=== PATIENT | male | born 1990 | race African-American/Black ===

== ENCOUNTER 2018-10-07 01:00 | Emergency (ER) | payer OTHER ==
[~2018-10-07] VITALS: Ht 170.2 cm; Wt 104.3 kg
[~2018-10-07 01:00] MED LIST: IBUPROFEN600 MG ORAL; NORCO 5-325 TA1 EAC1 ORAL
--- NOTE | 2018-10-07 01:34 | Emergency Room Report ---
History of Present Illness General Chief Complaint: Lower Extremity Injury Source: Patient Present Illness HPI Patient presents with complaints of pain to the right foot Reports that he was playing with a family member when he landed on his base of his large toe [place] pain across the mid part of the foot Pain has been ongoing since then approximately 6 PM Denies any ankle pain denies any knee pain Denies any back or flank pain denies any lapse of consciousness pain is worse with bearing weight Allergies: Coded Allergies: No Known Allergies (Unverified , 10/07/18) Patient History Past Medical History: see triage record Pertinent Family History: none Reviewed Nursing Documentation: PMH: Agreed; PSxH: Agreed Nursing Documentation-PMH Past Medical History: No Stated History Review of Systems All Other Systems: negative except mentioned in HPI Physical Exam Vital Signs Date Time Temp Pulse Resp B/P (MAP) Pulse Ox O2 Delivery O2 Flow Rate FiO2 10/07/18 01:09 98.4 99 18 165/94 96 Room Air Sp02 EP Interpretation: reviewed, normal General Appearance: well appearing, no apparent distress Head: normocephalic, atraumatic Eyes: bilateral eye PERRL, bilateral eye EOMI ENT: hearing grossly normal, normal pharynx Neck: supple Respiratory: lungs clear Cardiovascular #1: regular rate, rhythm Musculoskeletal: swelling - 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 on palpation of the base of the foot distally mainly on the first metacarpal Neurologic: alert, oriented x3 Skin: normal color, no rash Lymphatic: no adenopathy Procedures Splinting Progress Postop shoe applied does decrease pressure and immobilize the foot well patient provided with crutches remains neurovascularly intact after, Medical Decision Making Diagnostic Impression: Primary Impression: Injury of lower extremity Additional Impression: Foot sprain ER Course No obvious acute fractures are seen on the imaging Patient will have x-rays reviewed by radiology in the morning and was discussed regarding callback if any changes Patient remains neurovascularly intact at this time is stable for close outpatient follow-up Other X-Ray Diagnostic Results Other X-Ray Diagnostic Results : X-Ray ordered: Right foot # of Views/Limited Vs Complete: 3 View Indication: Pain EP Interpretation: Yes Interpretation: no dislocation, no soft tissue swelling, no fractures Impression: No acute disease Electronically Signed by: Josef Dash DO Last Vital Signs Date Time Temp Pulse Resp B/P (MAP) Pulse Ox O2 Delivery O2 Flow Rate FiO2 10/07/18 01:09 98.4 99 18 165/94 96 Room Air Status: improved Disposition: HOME, SELF-CARE Condition: Improved Scripts Ibuprofen* (MOTRIN*) 600 Mg Tablet 600 MG ORAL Q8H PRN for For Pain, #20 TAB 0 Refills Prov: Josef Dash DO 10/07/18 Additional Instructions: Patient is provided with the discharge instructions notified to follow up with primary doctor in the next 2-3 days otherwise return to the er with any worsening symptoms. Please note that this report is being documented using [employer] technology. This can lead to erroneous entry secondary to incorrect interpretation by the dictating instrument. Josef Dash DO Oct 07, 2018 01:34
[2018-10-07] MEDS ORDERED: IBUPROFEN600 MG ORAL (03:13)
[2018-10-07 03:45] VITALS: BP 151/88
--- NOTE | 2018-10-07 11:49 | Diagnostic Imaging Report ---
Indication: Trauma, pain Technique: 3 views right foot Comparison: none Findings: There are slight cortical irregularity of the first is noted on the lateral view, doubtful significance. Very questionable small gas bubbles seen within the first distal phalangeal soft tissues noted. No other evidence of acute fracture or dislocation. Distal phalanx Impression: Possible first distal phalangeal soft tissue trauma. Correlate with clinical findings Doubt acute bony trauma; cannot completely exclude nondisplaced fracture of the first distal phalanx. Correlate with clinical findings This agrees with the preliminary interpretation provided by the emergency room physician
== END 2018-10-07 03:45 | disposition home or self-care (01) ==
LOC: EMR 03:11
DX: S93.601A Unspecified sprain of right foot, initial encounter (principal); W50.0XXA Accidental hit or strike by another person, initial encounter; Y92.9 Unspecified place or not applicable
CPT/HCPCS: 99283

== ENCOUNTER 2019-06-14 01:36 | Emergency (ER) | payer MEDICAID, OTHER ==
[~2019-06-14] VITALS: Ht 170.2 cm; Wt 104.3 kg
--- NOTE | 2019-06-14 02:06 | NUR ---
ED Nurse Note: Patient presents with complaints of elmer, itching x 2 days, Happened yesterday and he took benadryl, happened again today.
[2019-06-14 02:08] VITALS: BP 134/79
[2019-06-14] MEDS ORDERED: PREDNISONE20 MG ORAL ×4 (02:29→02:34)
[2019-06-14] MEDS ORDERED: BENADRYL25 MG ORAL ×4 (02:29→02:34)
[2019-06-14] MEDS ORDERED: DiphenhydrAMINE 25mg/10ml Elixir ORAL ONE (02:45)
[2019-06-14 02:47] VITALS: BP 134/79
--- NOTE | 2019-06-14 02:47 | NUR ---
ED Nurse Note: Patient cleared for discharge, verbalized understanding of discharge instructions. Patient ID band removed. Patient departed with all belongings.
--- NOTE | 2019-06-16 21:49 | Emergency Room Report ---
History of Present Illness General Chief Complaint: Skin Rash/Abscess Source: Patient Present Illness Allergies: Coded Allergies: No Known Allergies (Unverified , 10/07/18) Nursing Documentation-H Past Medical History: No History, Except For Hx Asthma: Yes - juvenile Physical Exam Vital Signs Date Time Temp Pulse Resp B/P (MAP) Pulse Ox O2 Delivery O2 Flow Rate FiO2 06/14/19 01:45 98.2 107 16 134/79 (97) 95 Room Air Medical Decision Making Diagnostic Impression: Primary Impression: Urticaria Last Vital Signs Date Time Temp Pulse Resp B/P (MAP) Pulse Ox O2 Delivery O2 Flow Rate FiO2 06/14/19 02:47 98.2 78 16 134/79 95 Room Air Status: improved Disposition: HOME, SELF-CARE Condition: Stable Scripts Prednisone* (PREDNISONE*) 20 Mg Tablet 40 MG ORAL DAILY, #10 TAB Prov: Rico Rasmussen MD 06/14/19 Diphenhydramine Hcl* (BENADRYL*) 25 Mg Capsule 25 MG ORAL Q6H PRN for Itching, #30 CAP Prov: Rico Rasmussen MD 06/14/19 Referrals: [facility],REFERRING (PCP) Patient Instructions: Benito Bloc-to-Eyef Rico Rasmussen MD Jun 16, 2019 21:49
== END 2019-06-14 02:47 | disposition home or self-care (01) ==
LOC: EMR 02:35
DX: L50.9 Urticaria, unspecified (principal)
CPT/HCPCS: 99282; J7512

== ENCOUNTER 2019-06-16 10:11 | Emergency (ER) | payer OTHER ==
[~2019-06-16] VITALS: Ht 170.2 cm; Wt 104.3 kg
[~2019-06-16 10:11] MED LIST changes: +BENADRYL25 MG ORAL; +PREDNISONE20 MG ORAL
[2019-06-16 10:14] VITALS: BP 136/74
--- NOTE | 2019-06-16 10:23 | NUR ---
ED Nurse Note: Pt from home came in due to consistent hives and itchiness all over his body. Pt was seen here at [facility] 2 days ago for the same symptoms and was prescribed with prednisone and benadryl. No SOB. AAO x4, ambulatory.
--- NOTE | 2019-06-16 10:26 | NUR ---
ED Nurse Note: ERMD at bedside.
[2019-06-16] MEDS ORDERED: MEDROL DOSEPAK4 MG ORAL (10:32)
[2019-06-16] MEDS ORDERED: BENADRYL25 MG ORAL (10:32)
[2019-06-16 10:35] VITALS: BP 136/74
--- NOTE | 2019-06-16 10:35 | NUR ---
ER DISCHARGE NOTE: Patient is cleared to be discharged per ERMD, pt is aox4, on room air, with stable vital signs. pt was given dc and prescription instructions, pt was able to verbalize understanding, pt id band removed. pt is able to ambulate with steady gait. pt took all belongings.
--- NOTE | 2019-06-16 21:48 | Emergency Room Report ---
History of Present Illness General Chief Complaint: Skin Rash/Abscess Source: Patient Present Illness Allergies: Coded Allergies: No Known Allergies (Unverified , 10/07/18) Nursing Documentation-PMH Past Medical History: No History, Except For Hx Asthma: Yes - juvenile Physical Exam Vital Signs Date Time Temp Pulse Resp B/P (MAP) Pulse Ox O2 Delivery O2 Flow Rate FiO2 06/16/19 10:14 98.2 101 18 136/74 (94) 95 Room Air Medical Decision Making Diagnostic Impression: Primary Impression: Allergic reaction Last Vital Signs Date Time Temp Pulse Resp B/P (MAP) Pulse Ox O2 Delivery O2 Flow Rate FiO2 06/16/19 10:35 98.2 101 18 136/74 95 Room Air Disposition: HOME, SELF-CARE Condition: Stable Scripts Diphenhydramine Hcl* (BENADRYL*) 25 Mg Capsule 25 MG ORAL Q6H PRN for Itching, #30 CAP Prov: Rico Rasmussen MD 06/16/19 Methylprednisolone (Methylprednisolone*) 4MG Dspk 4 MG ORAL DIRECTED for 6 Days, #21 EA 0 Refills Day 1: Two tablets before breakfast, one after lunch, one after dinner, and two at bedtime. If started late in the day, take all six tablets at once or divide into two or three doses, unless otherwise directed by prescriber. Day 2: One tablet before breakfast, one after lunch, one after dinner, and two at bedtime Day 3: One tablet before breakfast, one after lunch, one after dinner, and one at bedtime Day 4: One tablet before breakfast, one after lunch, and one at bedtime Day 5: One tablet before breakfast and one at bedtime Day 6: One tablet before breakfast Prov: Rico Rasmussen MD 06/16/19 Referrals: [facility],REFERRING (PCP) Patient Instructions: Rico Wiseman MD Jun 16, 2019 21:48
== END 2019-06-16 10:35 | disposition home or self-care (01) ==
LOC: EMR 10:30
DX: T78.40XA Allergy, unspecified, initial encounter (principal); X58.XXXA Exposure to other specified factors, initial encounter
CPT/HCPCS: 99282

== ENCOUNTER 2019-08-26 14:26 | Emergency (ER) | payer OTHER ==
[~2019-08-26] VITALS: Ht 171.4 cm; Wt 108.9 kg
[~2019-08-26 14:26] MED LIST changes: +MEDROL DOSEPAK4 MG ORAL
[2019-08-26] MEDS ORDERED: NKM (14:33)
[2019-08-26] MEDS ORDERED: Methocarbamol 500mg tab ORAL ONE (15:00)
--- NOTE | 2019-08-26 15:01 | Emergency Room Report ---
History of Present Illness General Chief Complaint: Upper Extremity Injury Source: Medical Record Present Illness HPI 29-year-old male presents to the emergency department complaining of 10 out of 10 severity left-sided chest/shoulder/upper extremity pain that waxes and wanes x3 days. Patient reports no response to naproxen taken daily. Patient denies trauma or fall he denies significant past medical history. Patient denies skin color changes, rashes, open wounds, neck or back pain/previous injuries. Patient reports surgical history of ankle surgery in December of this year. Denies numbness tingling or loss of sensation or gross motor movements of the extremities, incontinence of bowel or bladder. Denies CP, Palpitations, LOC, AMS , dizziness, Changes in Vision, weakness or a sudden severe headache. Patient reports that currently he does not have any pain and he is unable to reproduce his pain at this time. 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 Allergies: Coded Allergies: No Known Allergies (Unverified , 10/07/18) Patient History Past Medical History: see triage record Past Surgical History: none Pertinent Family History: none Reviewed Nursing Documentation: PMH: Agreed; PSxH: Agreed Nursing Documentation-PMH Past Medical History: No History, Except For Hx Asthma: Yes - juvenile Review of Systems All Other Systems: negative except mentioned in HPI Physical Exam Vital Signs Date Time Temp Pulse Resp B/P (MAP) Pulse Ox O2 Delivery O2 Flow Rate FiO2 08/26/19 14:30 98.6 91 16 127/87 (100) 95 Room Air Sp02 EP Interpretation: reviewed, normal General Appearance: no apparent distress, alert, GCS 15, non-toxic Head: normocephalic, atraumatic Eyes: bilateral eye normal inspection, bilateral eye PERRL ENT: hearing grossly normal, normal voice Neck: full range of motion Respiratory: chest non-tender, lungs clear, normal breath sounds, speaking full sentences Cardiovascular #1: regular rate, rhythm, normal capillary refill Cardiovascular #2: 2+ radial (R), 2+ radial (L) Musculoskeletal: back normal, digits/nails normal, gait/station normal, normal range of motion, non-tender, other - unable to reproduce pain. Neurologic: alert, oriented x3, responsive, motor strength/tone normal, sensory intact, normal gait, speech normal, grossly normal Psychiatric: judgement/insight normal Skin: no rash, normal color Lymphatic: no adenopathy Medical Decision Making PA Attestation Dr. Ramirez is my supervising Physician whom patient management has been discussed with. Diagnostic Impression: Primary Impression: Left upper arm pain Additional Impression: Overuse syndrome of shoulder Qualified Codes: S46.912A - Strain of unspecified muscle, fascia and tendon at shoulder and upper arm level, left arm, initial encounter ER Course 29-year-old male presents to the emergency department complaining of 10 out of 10 severity left-sided chest/shoulder/upper extremity pain that waxes and wanes x3 days. Patient reports no response to naproxen taken daily. Patient denies trauma or fall he denies significant past medical history. Patient denies skin color changes, rashes, open wounds, neck or back pain/previous injuries. Patient reports surgical history of ankle surgery in December of this year. Denies numbness tingling or loss of sensation or gross motor movements of the extremities, incontinence of bowel or bladder. Denies CP, Palpitations, LOC, AMS , dizziness, Changes in Vision, weakness or a sudden severe headache. Patient reports that currently he does not have any pain and he is unable to reproduce his pain at this time. 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 Ddx considered but are not limited to Fracture, dislocation, contusion, Sprain/ Strain/Spasm, section, DVT, OH, impingement syndrome just to name a few. Vital signs: are WNL, pt. is afebrile H&PE are most consistent with musculoskeletal injury will perform imaging to r/ o fractures/dislocations. ORDERS: - EK NSR ED INTERVENTIONS: - Robaxin 1000mg PO - Lidoderm TP -I do not identify an emergent condition at this time. With current presentation , pt. is stable for close outpatient follow up and conservative treatment. D/ w pt. to return promptly to ED with worsening or new symptoms.- Pt. verbalizes' understanding and agreement with proposed treatment plan. DISCHARGE: At this time pt. is stable for d/c to home. Will provide printed patient care instructions, and any necessary prescriptions. Care plan and follow up instructions have been discussed with the patient prior to discharge. EKG Diagnostic Results EP Interpretation: Dr. Ramirez Rate: normal - 84 bpm Rhythm: NSR ST Segments: no acute changes ASA given to the pt in ED: No PA Scribe Text This Interpretation was scribed by IAN Awan. Last Vital Signs Date Time Temp Pulse Resp B/P (MAP) Pulse Ox O2 Delivery O2 Flow Rate FiO2 08/26/19 14:30 98.6 91 16 127/87 (100) 95 Room Air Disposition: HOME, SELF-CARE Condition: Stable Scripts Ibuprofen* (MOTRIN*) 600 Mg Tablet 600 MG ORAL THREE TIMES A DAY for 7 Days, #21 TAB 0 Refills Prov: Coco Awan 08/26/19 Methocarbamol* (ROBAXIN-750*) 750 Mg Tablet 750 MG PO QID, #28 TAB 0 Refills Prov: Coco Awan 08/26/19 Referrals: [facility],REFERRING (PCP) [facility] Patient Instructions: Repetitive Strain Injuries Additional Instructions: Take medications as directed. Follow up with a Primary Care Provider in 3-5 days, even if your symptoms have resolved. --Please review list of primary care clinics, if you do not already have a primary care provider Return sooner to ED if new symptoms occur, or current symptoms become worse. Do not drink alcohol, drive, or operate heavy machinery while taking Robaxin ( Muscle Relaxers) as this may cause drowsiness. - Please note that this Emergency Department Report was dictated using [employer] technology software, occasionally this can lead to erroneous entry secondary to interpretation by the dictation equipment. Coco Awan Aug 26, 2019 15:01
[2019-08-26] MEDS ORDERED: IBUPROFEN600 MG ORAL (15:26)
[2019-08-26] MEDS ORDERED: ROBAXIN-750750 MG PO (15:26)
[2019-08-26 15:50] VITALS: BP 127/87
--- NOTE | 2019-08-26 15:53 | NUR ---
ED Nurse Note: louise mujica done ekg done pt medicated and given aci and script verbalized understanding ambulated out with sagnificant other with strong steady gait and all belngings all medical devices and band removed.
== END 2019-08-26 15:56 | disposition home or self-care (01) ==
LOC: EMR 14:46
DX: S46.912A Strain of unspecified muscle, fascia and tendon at shoulder and upper arm level, left arm, initial encounter (principal); M70.812 Other soft tissue disorders related to use, overuse and pressure, left shoulder; X50.3XXA Overexertion from repetitive movements, initial encounter; Y93.G9 Activity, other involving cooking and grilling; Y92.9 Unspecified place or not applicable; Y99.0 Civilian activity done for income or pay
CPT/HCPCS: 93005; Z7502; 99283